=== PATIENT | female | born 1955 | race Caucasian/White ===

== ENCOUNTER 2020-08-12 09:57 | Outpatient (CLI) | payer OTHER ==
--- NOTE | 2020-08-12 12:39 | CT ---
CT of theneck: 08/12/2020 COMPARISON:None available HISTORY:Gastroesophageal reflux disease TECHNIQUE: Serial axial CT imaging at2 mm intervals from theskull base through lung apices without co ntrast. Coronal and sagittal reformatted imaging obtained Findings:Evaluation of the neck without contrast is limited with respect to assessment for lymphadeno iraida, of the mucosal structures, and of the vascular structures. The visualized lung apices are unremarkable. The imaged paranasal sinuses and mastoid air cells appear well-aerated. The retroantral and parapharyngeal fat appears grossly unremarkable bilaterally. The parotid glands a nd submandibular glands demonstrate a normal noncontrast enhanced appearance. Tonsillar pillars, epiglottis and preepiglottic fat, hyoid bone, thyroid cartilage, cricoid cartilage, level of the glot tis, and level of the thyroid gland demonstrate no acute findings. Limited assessment for lymphadenopathy is unremarkable. Review of the osseous structures demonstrates multilevel cervical spine degenerative change with disc space narrowing, endplate sclerosis, and posterior osteophyte at C3-4, C4-5, C5-6, and C6-7. No worrisome lytic or blastic bone lesions. There is a probable small hypodense nodule within the posterior superior aspect of the left lobe of the thyroid gland which may measure up to 9 mm. Impression:Limited noncontrast enhanced appearance of the neck demonstrates no acute findings. Probab le hypodense thyroid nodule posteriorly on the left for which follow-up thyroid ultrasound may be beneficial.
== END 2020-08-12 09:58 | disposition home or self-care (01) ==
LOC: SCSCT 09:57
PROVIDERS: ATTEND Specialist
DX: K21.9 Gastro-esophageal reflux disease without esophagitis (principal)
CPT/HCPCS: 70490; 82565

== ENCOUNTER 2021-03-04 15:22 | Outpatient (CLI) | payer BC | END 2021-03-04 15:23 | disposition home or self-care (01) | LOC: CTENTCT 15:22 | PROVIDERS: ATTEND Specialist | DX: J34.3 Hypertrophy of nasal turbinates (principal) | CPT/HCPCS: 70486 ==

== ENCOUNTER 2021-04-29 13:53 | Outpatient (CLI) | payer BC ==
[2021-04-29 16:22] LABS: Hemoglobin 12.5 g/dL (12.0-15.5); Mean Corpuscular HGB CONC 31.9 g/dL (32.0-36.0); Mean Corpuscular Hemoglobin 25.9 pg (27.0-33.0); Mean Corpuscular Volume 81.2 fl (81.6-98.3); Mean Platelet Volume 11.3 fl (7.4-10.4); Platelet Count 320 10x3/uL (150-450); RBC Distribution Width 16.2 % (11.5-14.5); Red Blood Cell (RBC) Count 4.83 10x6/uL (3.90-5.03); White Blood Cell (WBC) Count 9.5 10x3/uL (3.5-10.5)
[2021-04-29 16:32] LABS: Anion Gap 16 mmol/L (10-20); BUN (Urea Nitrogen) 16 mg/dL (9.8-20.1); Calc. Creatinine Clearance 0 mL/min (70-130); Calcium 9.5 mg/dL (7.8-10.44); Carbon Dioxide 24 mmol/L (23-31); Chloride 105 mmol/L (98-107); Glucose 129 mg/dL (80-115); Potassium 3.9 mmol/L (3.5-5.1); Sodium 141 mmol/L (136-145)
== END 2021-04-29 13:54 | disposition home or self-care (01) ==
LOC: LABBT 13:53
PROVIDERS: ATTEND Specialist
DX: Z01.818 Encounter for other preprocedural examination (principal); J34.2 Deviated nasal septum; J34.3 Hypertrophy of nasal turbinates; J32.0 Chronic maxillary sinusitis; R09.82 Postnasal drip
CPT/HCPCS: 80048; 93005; 93010

== ENCOUNTER 2021-05-01 07:55 | Day surgery (SDC) | payer BC ==
[2021-04-30 11:36] VITALS: BMI 47.5
[2021-05-01] MEDS ORDERED: AFRIN NASAL MIST 15 ML BOT ONE (09:04)
[2021-05-01] MEDS ORDERED: Fentanyl 100 MCG/2 ML VIAL ONE ×2 (09:11→11:21)
[2021-05-01] MEDS ORDERED: Midazolam HCl 2 mg/2 ml Vial ONE (09:11)
[2021-05-01] MEDS ORDERED: Lidocaine 1% w/Epinephrine 1:100K 20 ML VIAL ONE (09:13)
[2021-05-01] MEDS ORDERED: EPINEPHrine 1 MG/ML AMP ONE (09:13)
[2021-05-01] MEDS ORDERED: Bacitracin Zinc Ointment 30 gm TUBE ONE (09:13)
[2021-05-01] MEDS ORDERED: Acetaminophen 500 MG TAB ONE (09:24)
[2021-05-01] MEDS ORDERED: Dexamethasone 20 MG/5 ML VIAL ONE (09:54)
[2021-05-01] MEDS ORDERED: PROPOFOL 200 MG/20 ML VIAL ONE (09:54)
[2021-05-01] MEDS ORDERED: Rocuronium Bromide 10 MG/ML (10ML VIAL) ONE (09:54)
[2021-05-01] MEDS ORDERED: Ondansetron PF 4 MG/2 ML Vial ONE (09:54)
[2021-05-01] MEDS ORDERED: Lidocaine 1% PF 5 ML VIAL ONE (09:54)
== END 2021-05-01 13:20 | disposition home or self-care (01) ==
LOC: SDC 07:55
PROVIDERS: ATTEND Specialist
PROC: 09SM0ZZ Reposition Nasal Septum, Open Approach (ICD-10-PCS; principal; 2021-05-01)
PROC: 09TL8ZZ Resection of Nasal Turbinate, Via Natural or Artificial Opening Endoscopic (ICD-10-PCS; principal; 2021-05-01)
PROC: 099S8ZZ Drainage of Right Frontal Sinus, Via Natural or Artificial Opening Endoscopic (ICD-10-PCS; principal; 2021-05-01)
PROC: 099T8ZZ Drainage of Left Frontal Sinus, Via Natural or Artificial Opening Endoscopic (ICD-10-PCS; principal; 2021-05-01)
PROC: 099R8ZZ Drainage of Left Maxillary Sinus, Via Natural or Artificial Opening Endoscopic (ICD-10-PCS; principal; 2021-05-01)
PROC: 099Q8ZZ Drainage of Right Maxillary Sinus, Via Natural or Artificial Opening Endoscopic (ICD-10-PCS; principal; 2021-05-01)
DX: J34.2 Deviated nasal septum (principal); J32.0 Chronic maxillary sinusitis; J34.3 Hypertrophy of nasal turbinates; J34.89 Other specified disorders of nose and nasal sinuses; I10 Essential (primary) hypertension; Z79.899 Other long term (current) drug therapy
CPT/HCPCS: J0171; J1100; J2250; J2405; J2704; J3010

== ENCOUNTER 2022-10-15 19:30 | Outpatient (CLI) | payer MEDICARE | END 2022-10-15 19:31 | disposition home or self-care (01) | LOC: SLEEPLAB 19:30 | PROVIDERS: ATTEND Student in an Organized Health Care Education/Training Program | DX: G47.33 Obstructive sleep apnea (adult) (pediatric) (principal); K21.9 Gastro-esophageal reflux disease without esophagitis; E66.9 Obesity, unspecified; G47.00 Insomnia, unspecified; I10 Essential (primary) hypertension; R06.83 Snoring; G47.61 Periodic limb movement disorder; G47.10 Hypersomnia, unspecified; Z68.41 Body mass index [BMI] 40.0-44.9, adult | CPT/HCPCS: 95811 ==

== ENCOUNTER 2023-06-30 08:37 | Outpatient (CLI) | payer MEDICARE | END 2023-06-30 08:38 | disposition home or self-care (01) | LOC: NM 08:37 | PROVIDERS: ATTEND Specialist | DX: E21.3 Hyperparathyroidism, unspecified (principal); E04.2 Nontoxic multinodular goiter | CPT/HCPCS: 78072; A9500 ==